=== PATIENT | female | born 1995 | race Caucasian/White ===

== ENCOUNTER 2018-05-19 19:20 | Emergency (ER) | payer OTHER ==
[~2018-05-19] VITALS: Ht 152.4 cm; Wt 44.0 kg
== END 2018-05-20 00:24 | disposition home or self-care (01) ==
LOC: ER 19:20
DX: K29.70 Gastritis, unspecified, without bleeding (principal)

== ENCOUNTER 2018-11-07 20:40 | Inpatient (IN) | payer OTHER ==
[~2018-11-07] VITALS: Ht 152.4 cm; Wt 48.5 kg
== END 2018-11-10 15:15 | disposition home or self-care (01) | DRG 833 ==
LOC: OBS/DEL 20:40 → LDR 11-08 14:08
PROC: 4A1HXCZ Monitoring of Products of Conception, Cardiac Rate, External Approach (ICD-10-PCS; principal; 2018-11-08)
DX: O60.03 Preterm labor without delivery, third trimester (principal); Z34.03 Encounter for supervision of normal first pregnancy, third trimester

== ENCOUNTER 2018-12-17 06:55 | Inpatient (IN) | payer OTHER ==
[~2018-12-17] VITALS: Ht 152.4 cm; Wt 2.7 kg
[2018-12-17] MEDS ORDERED: PRENATAL PLUS1 EAC2 PO (07:20)
== END 2018-12-20 13:22 | disposition home or self-care (01) | DRG 785 ==
LOC: OB/GYN 06:55 → LDR 06:55 → O/R 13:37 → OB/GYN 15:21
PROVIDERS: ADMIT Obstetrics & Gynecology Obstetrics
PROC: 4A1HXCZ Monitoring of Products of Conception, Cardiac Rate, External Approach (ICD-10-PCS; 2018-12-17)
PROC: 4A033R1 Measurement of Arterial Saturation, Peripheral, Percutaneous Approach (ICD-10-PCS; 2018-12-17)
PROC: 0UB70ZZ Excision of Bilateral Fallopian Tubes, Open Approach (ICD-10-PCS; 2018-12-17)
PROC: 10D00Z1 Extraction of Products of Conception, Low, Open Approach (ICD-10-PCS; principal; 2018-12-17 12:00)
DX: O32.8XX0 Maternal care for other malpresentation of fetus, not applicable or unspecified (principal); Z3A.38 38 weeks gestation of pregnancy; Z37.0 Single live birth; Z30.2 Encounter for sterilization